=== PATIENT | male | born 1985 | race Caucasian/White ===

== ENCOUNTER → 2018-06-19 | Day surgery (SDC) | payer OTHER ==
[~2018-06-19] MED LIST: GLUCAGON 1 MG/ML VIAL IM STA
[2018-06-19 10:47] VITALS: BP 109/68; PULSE 74; RESP 16; TEMP 97.1
--- NOTE | 2018-06-22 14:21 | MR ---
EXAMINATION TYPE: MR Enterography DATE OF EXAM: 06/19/2018 COMPARISON: None HISTORY: Crohn's disease, diarrhea, blood in stool, nausea CONTRAST: Standard multiplanar, multisequence imaging of the abdomen is performed without and with IV contrast, patient is injected with 1350 mL intravenous Gadavist gadolinium contrast. Oral Volumen and Water wa s given as per enterography protocol. FINDINGS: On coronal postcontrast T1 fat sat image 161 (series 701) there is tethering of the mesenteric fat se en on T2 axial nonfat sat image 25 with comb sign also seen and creeping fat. On the same coronal brie ge the terminal ileum is identified extending to image 136 with no current bowel wall thickening or a bnormal hyperemic enhancement. The appendix is also visualized on coronal images and is within normal limits of size coursing around the cecum. Cluster loops of distal ileum are seen on postcontrast axi al image 72 within the left lower quadrant demonstrating mild bowel wall thickening and subtle increa sed enhancement in comparison to adjacent bowel loops. There is a normal mucosal fold pattern seen wi th incomplete distention of the more distal ileum clustered within the low pelvis. The sigmoid colon is redundant. Air-fluid levels are noted within the nondilated colon. No focal abno rmal enhancement is seen of the colonic mucosa. Portions of the sigmoid colon demonstrate colonic spa sm. There is no evidence of fistula or focal stricture. No pericolonic or perienteric abscess. No mes enteric edema. No T2 inflammatory fat stranding within the mesentery. Rectum is not image to evaluate for cutaneous or perirectal fistula. The partially visualized liver demonstrates a left hepatic lobe peripherally enhancing T2 hyperintens e lobulated 1.2 cm lesion on postcontrast axial fat sat image 101 as well as a nonenhancing right hep atic cyst on image 126. This measures 7 mm. Probable additional punctate 2 mm cyst is seen on image 1 35. The kidneys enhance symmetrically without hydronephrosis. No gallstones are appreciated. There is a small fold in the gallbladder. Adrenal glands are unremarkable as is the pancreas and spleen. Bone marrow signal is within normal limits. No adenopathy is appreciated within the abdomen or pelvis. IMPRESSION: 1. Mild enhancement of distal ileal loops in the left lower quadrant in a long segment measuring at l east 7 cm suggesting focal area of active inflammatory bowel disease in setting that this patient has history of Crohn's disease. No focal stricture, perienteric or pericolonic abscess, or fistula. No e vidence of active terminal ileitis. 2. Incompletely characterized left hepatic lobe lesion that could represent hemangioma although full characterization with three-phase enhanced CT abdomen is recommended for confirmation.
== END ==
LOC: RADMRIMAIN 09:46
PROVIDERS: ATTEND Internal Medicine Gastroenterology
DX: K50.00 Crohn's disease of small intestine without complications (principal); R10.33 Periumbilical pain
CPT/HCPCS: 36415; 72197; 74183; J1610; A9585